=== PATIENT | female | born 1970 | race Caucasian/White ===

== ENCOUNTER → 2018-10-05 | Outpatient (CLI) | payer OTHER, BC ==
[2018-10-05 10:47] LABS: HCT 45.8 % (34.0-46.0); HGB 15.1 gm/dL (11.4-16.0); MCH 29.3 pg (25.0-35.0); MCV 88.9 fL (80.0-100.0); Mean Platelet Volume 7.5; Platelet Count 297 k/uL (150-450); RBC 5.15 m/uL (3.80-5.40); RDW 13.5 % (11.5-15.5); WBC 10.4 k/uL (3.8-10.6)
[2018-10-05 10:54] LABS: Partial Thromboplastin Time 25.4 sec (22.0-30.0); Prothrombin Time 10.5 sec (9.0-12.0)
[2018-10-05 10:56] LABS: ALT 40 U/L (9-52); AST 29 U/L (14-36); Albumin 4.6 g/dL (3.5-5.0); Alkaline Phosphatase 127 U/L (38-126); Anion Gap 9 mmol/L; Blood Urea Nitrogen 15 mg/dL (7-17); Calcium 9.7 mg/dL (8.4-10.2); Carbon Dioxide 27 mmol/L (22-30); Chloride 106 mmol/L (98-107); Glucose 80 mg/dL (74-99); Potassium 4.5 mmol/L (3.5-5.1); Sodium 142 mmol/L (137-145); Total Bilirubin 0.4 mg/dL (0.2-1.3); Total Protein 7.9 g/dL (6.3-8.2)
[2018-10-05 11:52] LABS: Appearance,Urine Cloudy (Clear); Bilirubin,Urine Negative (Negative); Blood,Urine Negative (Negative); Color,Urine Yellow; Glucose,Urine (UA) Negative (Negative); Ketones,Urine Negative (Negative); Leukocyte Esterase,Urine Large (Negative); Mucus,Urine Few /hpf; Nitrite,Urine Negative (Negative); PH, Urine 5.5 (5.0-8.0); Protein,Urine Trace (Negative); RBC,Urine 7 /hpf (0-5); Specific Gravity,Urine 1.022 (1.001-1.035); Squamous Epithelial Cell,Urine 10 /hpf (0-4); Urobilinogen,Urine <2.0 mg/dL (<2.0); WBC,Urine 26 /hpf (0-5)
== END | disposition home or self-care (01) ==
LOC: LABPAT 09:54
PROVIDERS: ATTEND Orthopaedic Surgery
DX: Z01.812 Encounter for preprocedural laboratory examination (principal)
CPT/HCPCS: 36415; 80053; 81001; 85027; 85610; 85730; 87070

== ENCOUNTER 2018-10-20 07:00 | Inpatient (IN) | payer OTHER, BC ==
[~2018-10-20 07:00] MED LIST: ACETAMINOPHEN TAB 500 MG TAB PO ONE; DEXAMETHASONE SOD PHOSPHATE 10 MG/ML 1 ML VIAL IV ONE; MELOXICAM 7.5 MG TAB PO ONE; MIDAZOLAM 2 MG/2 ML VIAL IV PRN; ONDANSETRON 4 MG/2 ML VIAL IVP ONE; ROPIVACAINE 246.25 MG, EPINEPHrine 0.5 MG, KETOROLAC 30 MG, cloNIDine HCL/PF 80 MCG, WA... MISCELLANE ONE; SCOPOLAMINE 1.5MG/72HR PATCH TRANSDERM ONE; TRANEXAMIC ACID 1,000 MG in SODIUM CHLORIDE 0.9% 100 ML IVPB ONE; VANCOMYCIN 1,000 MG in SODIUM CHLORIDE 0.9% 250 ML IVPB ONE
[2018-10-20] MEDS ORDERED: LIDOCAINE 1% 20 ML VIAL (10MG/ML) FOR IV START INTRADERMA ONE (11:00)
[2018-10-20] MEDS: LACTATED RINGERS 1,000 ML IV SCH (11:02)
[2018-10-20] MEDS ORDERED: NALOXONE 0.4 MG/ML 1 ML VIAL IV PRN (12:50)
[2018-10-20] MEDS ORDERED: HYDROmorphone 0.5 MG/0.5 ML SYRINGE IVP PRN ×2 (12:50)
[2018-10-20] MEDS ORDERED: ONDANSETRON 4 MG/2 ML VIAL IVP PRN (12:50)
[2018-10-20] MEDS ORDERED: MAGNESIUM HYDROXIDE 2,400 MG/10 ML CUP PO PRN (12:50)
[2018-10-20] MEDS ORDERED: BISACODYL 10 MG SUPP RECTAL PRN (12:50)
[2018-10-20] MEDS ORDERED: HYDROcodone/APAP 5-325MG 1 EACH TAB PO PRN (12:50)
[2018-10-20] MEDS ORDERED: DIAZEPAM 5 MG TAB PO PRN (12:50)
[2018-10-20] MEDS ORDERED: HYDROmorphone 1 MG/ML 1 ML SYRINGE IVP PRN (12:50)
[2018-10-20] MEDS ORDERED: NA PHOS,M-B/NA PHOS,DI-BA 133 ML ENEMA RECTAL PRN (12:50)
[2018-10-20] MEDS ORDERED: hydrOXYzine PAMOATE 25 MG CAP PO PRN (12:50)
[2018-10-20] MEDS ORDERED: NEOSTIGMINE 1 MG/ML 10 ML VIAL ONE (12:51)
[2018-10-20] MEDS ORDERED: KETOROLAC 30 MG/ML 1 ML VIAL ONE (12:51)
[2018-10-20] MEDS ORDERED: TRANEXAMIC ACID 1,000 MG/10 ML VIAL ONE (12:51)
[2018-10-20] MEDS ORDERED: PROPOFOL 10 MG/ML 20 ML VIAL IV ONE (12:51)
[2018-10-20] MEDS ORDERED: fentaNYL (PF) 50 MCG/ML 2 ML AMP ONE (12:51)
[2018-10-20] MEDS ORDERED: MIDAZOLAM 2 MG/2 ML VIAL ONE (12:51)
[2018-10-20] MEDS ORDERED: GLYCOPYRROLATE 0.2 MG/ML 2 ML VIAL ONE (12:51)
[2018-10-20] MEDS ORDERED: ROCURONIUM BROMIDE 10 MG/ML 10 ML VIAL IV ONE (12:51)
[2018-10-20] MEDS ORDERED: SODIUM CHLORIDE 0.9% 100 ML BAG ONE (12:51)
[2018-10-20] MEDS ORDERED: HYDROmorphone (PF) 1 MG/ML ONE (12:51)
[2018-10-20] MEDS ORDERED: SUCCINYLCHOLINE CHLORIDE 100 MG/5 ML SYR IV ONE (12:51)
[2018-10-20] MEDS ORDERED: LACTATED RINGERS 1,000 ML IV ONE (14:14)
--- NOTE | 2018-10-20 15:11 | P.OP ---
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 The articulation is Oxinium on polyethylene. Anesthesia: spinal Surgeon: Fco Cuenca Head Gauge Unit Operator #1: Drea Tristan Estimated Blood Loss (ml): 100 Pathology: other (Cultures 2, frozen section) Condition: stable Disposition: PACU Indications for Procedure: This is a 40-year-old female that has had a left total knee arthroplasty performed by another surgeon approximately 3-4 years ago. She has constant pain and significant ligamentous instability of her left knee. After discussing the surgical nonsurgical treatment options with her at length, she wishes to proceed with a revision of her left total knee arthroplasty. Operative Findings: The operative findings are consistent with significant ligamentous instability of her left total knee. Description of Procedure: Patient was seen in the preoperative area consent was reviewed and operative site was marked with a skin marker. An adductor canal pain catheter was placed by anesthesia in the preoperative area. Patient was then brought to the operating room and given preoperative antibiotics intravenously. A spinal anesthetic was administered by the anesthesia department. A tourniquet was placed on the upper thigh and the lower extremity was prepped and draped in usual sterile fashion. A gram of transexamic acid was given. A universal timeout was then performed which confirmed the patient's name, surgical site, ALLERGIES, and consent. The lower extremity was then exsanguinated and tourniquet was inflated to 250 mmHg. A standard and anterior midline approach to the knee was performed. The skin and subcutaneous tissue was dissected down to the patellar tendon. A medial parapatellar arthrotomy was then performed. The knee was then extended, the patellar was everted, and the knee was again flexed. The knee was then cultured 2. The prosthesis was then evaluated and the tibial component was found to be well fixed. Using a small oscillating saw, the implant/bone interface was disrupted and the femoral and tibial components were then removed without difficulty. Next, sequential reaming of the femoral canal was then performed by hand. The femur was then sized and the distal cutting block was then placed in the distal femur was then freshened with a cut. Next the 4-in-1 cutting block was then placed, and set for the appropriate rotation. Anterior posterior chamfer cuts were then performed as well as anterior posterior cuts. The trial femur was then placed with appropriate length stem. Next the box cutting guide was placed in the bone for the box was then reamed and removed. Femoral trial was then removed. Attention was then directed to the tibia. Sequential reaming of the tibial canal was then performed with appropriate size. The intramedullary tibial cutting guide was then placed the tibia was then freshened with a minimal resection. The tibia was then sized and the canal was prepared for the stem. The tibial trial was then placed and found to have a good fit. The femoral trial was then placed as well. Next, the insert trials were then sequentially used until the appropriate-sized insert was reached. Knee was able to fully extend and flex to 120 and was stable to varus and valgus and anterior posterior stresses throughout all range of motion. Trials were then removed. The cut surfaces of bone were then irrigated with pulsatile lavage. The posterior structures were injected with the ropivacaine solution. The knee was also irrigated with Irrisept solution. The components were then opened, the cement was mixed, and the components were then cemented in place. The cement was allowed to harden with the knee in full extension. After the cemented hardened. The tourniquet was released, and hemostasis was obtained. A second gram of transexamic acid was given. The knee was again irrigated. The knee was again taken through range of motion and found to be stable throughout all range of motion of 0-130, and the patella tracked normally. The fascia was then closed with#1 Vicryl suture. The subcutaneous tissue was closed with 3-0 Vicryl and 3-0 strata fix. Dermabond glue was used for the skin and placed with the knee in flexion. The patient was placed in a sterile silver dressing. Patient was then transferred to recovery room in stable condition. The review assistant RITESH Carrero was required due the complexity surgery and the need for a skilled neurosurgical physician assistant. She assisted in positioning, draping, retraction, and closure of the wound.
[2018-10-20] MEDS: HYDROmorphone 0.5 MG/0.5 ML SYRINGE IVP PRN ×2 (15:53→16:09)
--- NOTE | 2018-10-20 16:17 | XR ---
EXAMINATION TYPE: XR knee limited LT DATE OF EXAM: 10/20/2018 COMPARISON: NONE TECHNIQUE: Two views submitted HISTORY: Post op FINDINGS: There is a prosthetic knee in near anatomic alignment. There is soft tissue edema and emphysema. It does appear to be a cortical break involving the medial margin of the distal femur which should be c orrelated clinically. Fluid air collection in the suprapatellar bursa noted. IMPRESSION: 1. Postoperative change. Appears in near-anatomic alignment. There also appears to be a cortical robert ak involving the distal metadiaphysis of the medial margin of the femur suspicious for a fracture. Co rrelate clinically. Report called to patient's nurse.
[2018-10-20] MEDS: SODIUM CHLORIDE 0.9% 1,000 ML IV SCH (17:25)
[2018-10-20] MEDS ORDERED: SENNOSIDES-DOCUSATE SODIUM 1 EACH TAB PO SCH (21:00)
[2018-10-20] MEDS: ASPIRIN 325 MG TAB PO SCH (21:31)
[2018-10-20] MEDS: HYDROcodone/APAP 5-325MG 1 EACH TAB PO PRN (21:31)
[2018-10-21] MEDS ORDERED: VANCOMYCIN 1,000 MG in SODIUM CHLORIDE 0.9% 250 ML IVPB ONE ×2
[2018-10-21] MEDS: LACTATED RINGERS 1,000 ML IV SCH (02:33)
[2018-10-21] MEDS: SODIUM CHLORIDE 0.9% 1,000 ML IV SCH (02:33)
[2018-10-21] MEDS: HYDROcodone/APAP 5-325MG 1 EACH TAB PO PRN ×2 (03:41→09:02)
[2018-10-21 08:24] LABS: Basophils % (A) 0 %; Eosinophils % (A) 0 %; HCT 36.8 % (34.0-46.0); Lymphocytes # (A) 3.1 k/uL (1.0-4.8); Lymphocytes % (A) 21 %; MCH 29.7 pg (25.0-35.0); MCHC 32.5 g/dL (31.0-37.0); MCV 91.2 fL (80.0-100.0); Mean Platelet Volume 7.6; Monocytes # (A) 0.6 k/uL (0-1.0); Monocytes % (A) 4 %; Neutrophils % (A) 74 %; Platelet Count 199 k/uL (150-450); RBC 4.04 m/uL (3.80-5.40); RDW 13.4 % (11.5-15.5)
[2018-10-21 08:45] VITALS: BP 122/74; PULSE 74; RESP 16; TEMP 97.4
[2018-10-21] MEDS ORDERED: MELOXICAM 7.5 MG TAB PO SCH (09:00)
[2018-10-21] MEDS: ASPIRIN 325 MG TAB PO SCH (09:03)
--- NOTE | 2018-10-21 09:15 | P.DS ---
Providers Date of admission: 10/20/18 10:28 Expected date of discharge: 10/21/18 Attending physician: Fco Cuenca Consults: 10/20/18 12:50 Consult Physician Routine Consulting Provider: Eliu Coyle Consult Reason/Comments: medical management Do you want consulting provider notified?: Yes Primary care physician: Jorge A Zhong PAC - Discharge Diagnosis(es) (1) Status post revision of total replacement of left knee Current Visit: Yes Status: Acute Hospital Course: This is a 48-year-old female with known history of left total knee arthroplasty. Patient presented as an outpatient with complaints of pain and ligamentous instability of the left knee. After discussion and consideration patient elects to proceed with revision left total knee arthroplasty. The patient is seen preoperatively by Dr. Cuenca and medically cleared for surgery by their primary care physician. Patient is admitted to [facility] on 10/20/2018 for revision left total knee arthroplasty. The procedures performed without complication or sequelae. The patient is doing well postoperatively. Labs and vital signs are stable on day of discharge. On day of discharge patient's knee incision is healing well. There is minimal erythema. There is no drainage noted at this time. There is minimal soft t issue swelling to the knee. Patient has full foot and ankle motion without difficulty or pain. Calf is soft and nontender to palpation. Neurovascular status to the left lower extremity is intact. Patient is discharged home in good condition. Opioid start talking form is reviewed and signed at patient bedside. Please see med rec for accurate list of home medications. Plan - Discharge Summary Discharge Rx Participant: No New Discharge Prescriptions: New Aspirin 325 mg PO BID #60 tab HYDROcodone/APAP 5-325MG [[place] 5-325] 1 - 2 tab PO Q6HR PRN #56 tab PRN Reason: Pain Sennosides [Senokot] 1 tab PO BID #60 tablet No Action Gabapentin [Neurontin] 300 mg PO TID Esomeprazole Magnesium [NexIUM] 40 mg PO DAILY PRN PRN Reason: GERD Ergocalciferol (Vitamin D2) [Vitamin D2] 50,000 unit PO Q7D Cyclobenzaprine [Flexeril] 10 mg PO DAILY PRN PRN Reason: MUSCLE SPASMS Cider Vinegar [Apple Cider Vinegar] 300 mg PO DAILY Cetirizine HCl [Zyrtec] 10 mg PO QAM Calcium Carbonate [Calcium] 600 mg PO DAILY Atorvastatin [Lipitor] 40 mg PO HS Discharge Medication List Atorvastatin [Lipitor] 40 mg PO HS 10/13/18 [History] Calcium Carbonate [Calcium] 600 mg PO DAILY 10/13/18 [History] Cetirizine HCl [Zyrtec] 10 mg PO QAM 10/13/18 [History] Cider Vinegar [Apple Cider Vinegar] 300 mg PO DAILY 10/13/18 [History] Cyclobenzaprine [Flexeril] 10 mg PO DAILY PRN 10/13/18 [History] Ergocalciferol (Vitamin D2) [Vitamin D2] 50,000 unit PO Q7D 10/13/18 [History] Esomeprazole Magnesium [NexIUM] 40 mg PO DAILY PRN 10/13/18 [History] Gabapentin [Neurontin] 300 mg PO TID 10/13/18 [History] Aspirin 325 mg PO BID #60 tab 10/21/18 [Rx] HYDROcodone/APAP 5-325MG [[place] 5-325] 1 - 2 tab PO Q6HR PRN #56 tab 10/21/18 [Rx] Sennosides [Senokot] 1 tab PO BID #60 tablet 10/21/18 [Rx] Follow up Appointment(s)/Referral(s): Fco Cuenca DO [Doctor of Osteopathic Medicine] - 2 Weeks Activity/Diet/Wound Care/Special Instructions: 50% weightbearing as tolerated with a walker. CPM 5-6h daily as tolerated. Leave dressing intact. May be removed by home care nurse or by patient in 10 days. May shower with dressing on. Please follow up with [facility] and call with any questions or concerns, . Discharge Disposition: HOME WITH HOME HEALTH SERVICES
--- NOTE | 2018-10-22 09:38 | CONS ---
CONSULTATION REASON FOR CONSULTATION: Advice regarding hyperlipidemia, GERD and multiple other medical problems requested by Dr. Cuenca. HISTORY OF PRESENT ILLNESS: This 48-year-old woman with past medical history of COPD, GERD, hyperlipidemia, history of DJD, history of pneumonia being followed by Jorge A Zhong [place] was admitted after revision of the left total knee arthroplasty by Dr. Cuenca. There is no history of fever, rigors or chills. No history of headache, loss of consciousness, seizures, chest pain, palpitations, hematochezia or melena at this time. PAST MEDICAL HISTORY: COPD, GERD, hyperlipidemia, history of , DJD history pneumonia, history of resection. MEDICATIONS: Home medications are: 1. Neurontin 300 mg t.i.d. 2. Magnesium. 3. Vitamin D2. 4. Flexeril 10 mg p.o. daily. 5. Apple cider vinegar. 7. Calcium. 8. Lipitor 40 mg. 9. Senokot 1 tablet p.o. b.i.d. ALLERGIES: BENZOCAINE, LIDOCAINE, PROCAINE, SULFA, CODEINE, HYDROCODONE, MORPHINE. FAMILY HISTORY: No history of heart disease or strokes in family. SOCIAL HISTORY: Previous history of smoking. No history of current smoking or alcohol intake. REVIEW OF SYSTEMS: ENT: No diminished vision, no diminished hearing. CARDIOVASCULAR: No angina or palpitations. RESPIRATORY: As mentioned earlier. GI no nausea or vomiting. : No dysuria. NERVOUS SYSTEM: No numbness or weakness. ALLERGY/IMMUNOLOGY: No asthma, hayfever. MUSCULOSKELETAL: As mentioned earlier. HEMATOLOGY/ONCOLOGY: No history of anemia. ENDOCRINE: No history of diabetes or hypothyroidism. CONSTITUTIONAL: As mentioned earlier. DERMATOLOGY: Negative. RHEUMATOLOGY: Negative. PSYCHIATRIC: Negative. PHYSICAL EXAMINATION: GENERAL: Alert and oriented x3. VITAL SIGNS: Pulse 74. Blood pressure 122/74, respirations 16, temperature 97.4, pulse ox 98% on 2 L. HEENT is conjunctivae normal. Oral mucosa moist. NECK is no jugular venous distention. No carotid bruit. No lymph node enlargement. CARDIOVASCULAR System: S1, S2. RESPIRATION: Breath sounds diminished in the bases. No rhonchi. No crackles. ABDOMEN: Soft. Nontender. No mass palpable. LEGS: Status post knee arthroplasty. NERVOUS SYSTEM: Higher functions as mentioned earlier. Moves all 4 limbs. No focal motor or sensory deficits. LYMPHATICS: No lymph nodes palpable in the neck, axillae or groin. SKIN: No ulcers, rash or bleeding. JOINTS: As mentioned earlier. LABS: WBC, hemoglobin is 12. ASSESSMENT: 1. Status post revision left total knee arthroplasty. 2. Increased WBC possibly reactive otherwise. 3. Chronic obstructive pulmonary disease. 4. Gastroesophageal reflux disease. 5. Hyperlipidemia. 6. History of mitral valve prolapse. 7. History of degenerative joint disease. 8. History of pneumonia. 9. History of section. 10.Remote history of nicotine dependence. 11.FULL CODE. RECOMMENDATIONS AND DISCUSSION: In this 48-year-old woman who presented with multiple complex medical issues, at this time, I recommend to continue current medications. Continue symptomatic treatment. Resume the home medications. I would recommend follow closely with primary physician. Otherwise, DVT prophylaxis and incentive spirometry. Follow the patient closely. Thank you, Dr. Cuenca, for letting us participate in the care of this patient. MARIELLEL / FRANKLYNN: [id number] / ANTHONY
== END 2018-10-21 13:36 | disposition home health service (06) | DRG 468 ==
LOC: 2ORMAIN 10:28 → 4SSUR 15:45
PROVIDERS: ADMIT Orthopaedic Surgery; ATTEND Orthopaedic Surgery
PROC: 0SPD0JZ Removal of Synthetic Substitute from Left Knee Joint, Open Approach (ICD-10-PCS; principal; 2018-10-20 12:35)
PROC: 0SRD0J9 Replacement of Left Knee Joint with Synthetic Substitute, Cemented, Open Approach (ICD-10-PCS; principal; 2018-10-20 12:35)
DX: T84.023A Instability of internal left knee prosthesis, initial encounter (principal); T84.84XA Pain due to internal orthopedic prosthetic devices, implants and grafts, initial encounter; M25.362 Other instability, left knee; E78.5 Hyperlipidemia, unspecified; I34.1 Nonrheumatic mitral (valve) prolapse; Z96.652 Presence of left artificial knee joint; K21.9 Gastro-esophageal reflux disease without esophagitis; J44.9 Chronic obstructive pulmonary disease, unspecified; Z83.3 Family history of diabetes mellitus; Z88.4 Allergy status to anesthetic agent; Z88.5 Allergy status to narcotic agent; Z88.2 Allergy status to sulfonamides; Z90.710 Acquired absence of both cervix and uterus; Z87.01 Personal history of pneumonia (recurrent); Z98.891 History of uterine scar from previous surgery
CPT/HCPCS: 85025